=== PATIENT | male | born 1935 | race Caucasian/White ===

== ENCOUNTER → 2022-11-02 | Outpatient (CLI) | payer MEDICARE ==
[~2022-11-02] MED LIST: ACHYD1T PO; ASP81CT PO; CPR500T PO; DIPH25TA82 PO; ENAL5TAB PO; FINA5TAB6 PO; FISH1200 PO; MULT-608 PO; NIAC1CAP PO; PHEN200T27 PO; TMSL.4C PO; TRIA1CAP4 PO
== END ==
LOC: ONC 15:05
PROVIDERS: ATTEND Internal Medicine Hematology & Oncology
DX: Z01.89 Encounter for other specified special examinations (principal)
CPT/HCPCS: 36415; 84153